=== PATIENT | female | born 2000 | race African-American/Black ===

== ENCOUNTER 2023-11-16 03:08 | Emergency (ER) | payer SELFPAY ==
[2023-11-16] MEDS: ACETAMINOPHEN 500 MG TABLET PO ONE (04:05)
[2023-11-16] MEDS: IBUPROFEN 600 MG TABLET PO ONE (04:05)
== END 2023-11-16 04:27 | disposition home or self-care (01) ==
LOC: EMS 03:18
DX: S80.212A Abrasion, left knee, initial encounter (principal); M25.571 Pain in right ankle and joints of right foot; X58.XXXA Exposure to other specified factors, initial encounter; Y93.01 Activity, walking, marching and hiking; Y92.89 Other specified places as the place of occurrence of the external cause; Y99.8 Other external cause status
CPT/HCPCS: 99283